=== PATIENT | female | born 1990 | race American Indian/Alaskan Native ===

== ENCOUNTER 2016-12-06 09:15 | Emergency (ER) | payer SELFPAY ==
[2016-12-06 09:22] VITALS: BP 111/62
[2016-12-06 10:16] LABS: Bacteria,Urine 1+ /HPF (Negative); Bilirubin,Urine NEG (Negative); Blood,Urine MOD (Negative); Ketones,Urine 80 mg/dL (Negative); Leukocyte Esterase,Urine LG (Negative); Mucus,Urine 3+ /HPF; Nitrite,Urine NEG (Negative); Urobilinogen,Urine < 2.0 mg/dL (<2.0)
[2016-12-06 10:20] LABS: WBC,Urine > 182.0 /HPF (0.0-6.0)
--- NOTE | 2016-12-06 10:39 | Emergency Department Report ---
ED Female HPI - General Chief complaint: Urogenital-Female Stated complaint: POSS UTI Time Seen by Provider: 12/06/16 10:15 Source: patient Mode of arrival: Ambulatory Limitations: No Limitations - History of Present Illness Initial comments: This is a 26-year-old female nontoxic, well nourished in appearance, no acute signs of distress presents to the ED complaining of urinary frequency and dysuria 4 days. Patient denies any vaginal discharge or vaginal bleeding. Patient states she may have a UTI or is . Patient denies similar symptoms. Denies any fever, chills, nausea, vomiting, back pain, numbness, hematuria, tingling, chest pain or shortness of breath. Patient denies any allergies or past medical history. MD Complaint: dysuria -: Gradual, days(s) (4) Radiation: non-radiating Severity: mild Severity scale (0 -10): 6 Quality: burning Consistency: constant Improves with: none Worsens with: urination Are you Now?: No Associated Symptoms: dysuria. denies: vaginal discharge, vaginal bleeding, abdominal pain, nausea/vomiting, fever/chills, headaches, loss of appetite, hematuria, rash, seizure, shortness of breath, syncope, weakness - Related Data Previous Rx's Medication Instructions Recorded Last Taken Type Sulfamethoxazole/Trimethoprim 1 each PO BID #14 tablet 12/06/16 Unknown Rx [Bactrim Ds Tablet] Allergies Allergy/AdvReac Type Severity Reaction Status Date / Time No Known Allergies Allergy Unverified 12/06/16 09:22 ED Review of Systems ROS: Stated complaint: POSS UTI Other details as noted in HPI Constitutional: denies: chills, fever Eyes: denies: eye pain, eye discharge, vision change ENT: denies: ear pain, throat pain Respiratory: denies: cough, shortness of breath, wheezing Cardiovascular: denies: chest pain, palpitations Endocrine: no symptoms reported Gastrointestinal: denies: abdominal pain, nausea, diarrhea Genitourinary: dysuria, frequency. denies: urgency, discharge Musculoskeletal: denies: back pain, joint swelling, arthralgia Skin: denies: rash, lesions Neurological: denies: headache, weakness, paresthesias Psychiatric: denies: anxiety, depression Hematological/Lymphatic: denies: easy bleeding, easy bruising ED Past Medical Hx - Past Medical History Previous Medical History?: No - Surgical History Past Surgical History?: No - Social History Smoking Status: Never Smoker Substance Use Type: None - Medications Home Medications: Home Medications Medication Instructions Recorded Confirmed Last Taken Type Sulfamethoxazole/Trimethoprim 1 each PO BID #14 tablet 12/06/16 Unknown Rx [Bactrim Ds Tablet] ED Physical Exam - General Limitations: No Limitations General appearance: alert, in no apparent distress - Head Head exam: Present: atraumatic, normocephalic - Eye Eye exam: Present: normal appearance, PERRL, EOMI. Absent: scleral icterus, conjunctival injection, nystagmus, periorbital swelling, periorbital tenderness Pupils: Present: normal accommodation - ENT ENT exam: Present: normal exam, normal orophraynx, mucous membranes moist, TM's normal bilaterally, normal external ear exam - Neck Neck exam: Present: normal inspection, full ROM. Absent: tenderness, meningismus, lymphadenopathy, thyromegaly - Respiratory Respiratory exam: Present: normal lung sounds bilaterally. Absent: respiratory distress, wheezes, rales, rhonchi, stridor, chest wall tenderness, accessory muscle use, decreased breath sounds, prolonged expiratory - Cardiovascular Cardiovascular Exam: Present: regular rate, normal rhythm, normal heart sounds. Absent: bradycardia, tachycardia, irregular rhythm, systolic murmur, diastolic murmur, rubs, gallop - GI/Abdominal GI/Abdominal exam: Present: soft, normal bowel sounds. Absent: distended, tenderness, guarding, rebound, rigid, diminished bowel sounds - Rectal Rectal exam: Present: deferred - Extremities Exam Extremities exam: Present: normal inspection, full ROM. Absent: tenderness, normal capillary refill, pedal edema, joint swelling, calf tenderness - Back Exam Back exam: Present: normal inspection, full ROM. Absent: tenderness, CVA tenderness (R), CVA tenderness (L), muscle spasm, paraspinal tenderness, vertebral tenderness, rash noted - Neurological Exam Neurological exam: Present: alert, oriented X3, CN II-XII intact, normal gait, reflexes normal - Psychiatric Psychiatric exam: Present: normal affect, normal mood - Skin Skin exam: Present: warm, dry, intact, normal color. Absent: rash ED Course Vital Signs 12/06/16 09:20 Temperature 98.6 F Pulse Rate 77 Respiratory 16 Rate Blood Pressure 111/62 O2 Sat by Pulse 100 Oximetry - Reevaluation(s) Reevaluation #1: 12/06/16 10:37 Patient is speaking in full sentences with no signs of distress noted. ED Medical Decision Making - Medical Decision Making 26-year-old female presents with UTI. UA has been obtained with elevated WBC, blood, ketones, and leukocytes. Negartive UA Preg. Patient received Bactrim at discharge. Patient notified her of the UA findings. Patient was instructed to follow-up with a primary care doctor in 3-5 days or if symptoms worsen and continue return to emergency room as soon as possible possible. At time time of discharge, the patient does not seem toxic or ill in appearance. No acute signs of distress noted. Patient agrees to discharge treatment plan of care. No further questions noted by the patient. Critical care attestation.: If time is entered above; I have spent that time in minutes in the direct care of this critically ill patient, excluding procedure time. ED Disposition Clinical Impression: UTI (urinary tract infection) Qualifiers: Urinary tract infection type: site unspecified Hematuria presence: without hematuria Qualified Code(s): N39.0 - Urinary tract infection, site not specified Disposition: DC-01 TO HOME OR SELFCARE Is pt being admited?: No Does the pt Need Aspirin: No Condition: Stable Instructions: Urinary Tract Infection in Women (ED), Sulfamethoxazole/ Trimethoprim (By mouth) Additional Instructions: Follow-up with a primary care doctor in 3-5 days or if symptoms worsen and continue return to emergency room as soon as possible possible. Prescriptions: Sulfamethoxazole/Trimethoprim [Bactrim Ds Tablet] 1 each PO BID #14 tablet Referrals: BRIAN SOLARES MD [Primary Care Provider] - 3-5 Days JONI CHONG MD [Staff Physician] - 3-5 Days [facility] [Outside] - 3-5 Days [facility] [Outside] - 3-5 Days Forms: Work/School Release Form(ED)
== END 2016-12-06 11:14 | disposition home or self-care (01) ==
LOC: MERGE 09:15 → ED 09:15
DX: N39.0 Urinary tract infection, site not specified (principal)
CPT/HCPCS: 81001; 81025; 99283

== ENCOUNTER 2017-02-07 09:07 | Emergency (ER) | payer MEDICAID, OTHER ==
[2017-02-07 09:55] VITALS: BP 103/69
[2017-02-07 11:10] LABS: Bacteria,Urine 2+ /HPF (Negative); Bilirubin,Urine NEG (Negative); Blood,Urine NEG (Negative); Ketones,Urine 80 mg/dL (Negative); Leukocyte Esterase,Urine LG (Negative); Mucus,Urine 3+ /HPF; Nitrite,Urine NEG (Negative); Urobilinogen,Urine < 2.0 mg/dL (<2.0)
[2017-02-07] MEDS ORDERED: ROCEPHIN IM ONE (11:13)
[2017-02-07] MEDS ORDERED: XYLOCAINE 1% MPF 5 mL INFILTRATI ONE (11:13)
[2017-02-07] MEDS ORDERED: ZITHROMAX PO ONE (11:39)
--- NOTE | 2017-02-07 11:44 | Emergency Department Report ---
ED Female HPI - General Chief complaint: Urogenital-Female Stated complaint: POSS STD Time Seen by Provider: 02/07/17 10:45 Source: patient Mode of arrival: Ambulatory Limitations: No Limitations - History of Present Illness Initial comments: PT c/o possible STD. PT reports unprotected sex 4 days ago. PT reports it was painful and her vagina feels irritated and she denies odor. PT states she also had some urinary frequency and dysuria. PT states her period tracker is saying that she should have started her period yesterday, but she has not started. PT denies f/c/n/v PT denies hx of STDs including PID or cervicitis PT is Complaint: vaginal discharge, possible STD -: Gradual, days(s) Location: suprapubic Radiation: non-radiating Severity: mild Quality: burning, other (irritation ) Consistency: constant Worsens with: urination, intercourse Are you Now?: No Associated Symptoms: vaginal discharge, dysuria. denies: vaginal bleeding, nausea/vomiting - Related Data Sexually active: Yes : 1 Para: 0 A: 1 Previous Rx's Medication Instructions Recorded Last Taken Type Cephalexin [Keflex] 500 mg PO Q12HR #14 cap 02/07/17 Unknown Rx Clotrimazole [Yxsr-Nnknhqxp-2] 1 applicator VG QHS 7 Days 02/07/17 Unknown Rx cream.appl Vit No.130/Iron/Folic 1 each PO DAILY #30 tablet 02/07/17 Unknown Rx [ Tablet] Allergies Allergy/AdvReac Type Severity Reaction Status Date / Time No Known Allergies Allergy Verified 02/07/17 09:48 ED Review of Systems ROS: Stated complaint: POSS STD Other details as noted in HPI Comment: All other systems reviewed and negative Constitutional: denies: chills, fever Gastrointestinal: denies: nausea, vomiting Genitourinary: as per HPI, dysuria, frequency, discharge, abnormal menses Musculoskeletal: denies: back pain Skin: denies: rash ED Past Medical Hx - Past Medical History Previous Medical History?: No - Surgical History Past Surgical History?: No - Social History Smoking Status: Never Smoker Substance Use Type: None - Medications Home Medications: Home Medications Medication Instructions Recorded Confirmed Last Taken Type Cephalexin [Keflex] 500 mg PO Q12HR #14 cap 02/07/17 Unknown Rx Clotrimazole [Tvzb-Fngnjmex-7] 1 applicator VG QHS 7 Days 02/07/17 Unknown Rx cream.appl Vit No.130/Iron/Folic 1 each PO DAILY #30 tablet 02/07/17 Unknown Rx [ Tablet] ED Physical Exam - General Limitations: No Limitations General appearance: alert, in no apparent distress - Head Head exam: Present: atraumatic, normocephalic, normal inspection - Eye Eye exam: Present: normal appearance, PERRL, EOMI. Absent: scleral icterus, conjunctival injection - ENT ENT exam: Present: normal exam, mucous membranes moist, normal external ear exam - Neck Neck exam: Present: normal inspection, full ROM - Respiratory Respiratory exam: Present: normal lung sounds bilaterally. Absent: respiratory distress, chest wall tenderness - Cardiovascular Cardiovascular Exam: Present: regular rate, normal rhythm, normal heart sounds - GI/Abdominal GI/Abdominal exam: Present: soft, normal bowel sounds. Absent: tenderness - External exam: Present: normal external exam. Absent: lesions, bleeding Speculum exam: Present: foreign body (white tissue found in vagina. Possible baby wipe or facial tissue. PT denies fb insertion ) Bi-manual exam: Present: normal bi-manual exam. Absent: cervical motion tendernes, uterine tenderness - Extremities Exam Extremities exam: Present: normal inspection, full ROM. Absent: pedal edema - Back Exam Back exam: Present: normal inspection, full ROM. Absent: tenderness, CVA tenderness (R), CVA tenderness (L) - Neurological Exam Neurological exam: Present: alert, oriented X3, normal gait - Psychiatric Psychiatric exam: Present: normal affect, normal mood - Skin Skin exam: Present: warm, dry, intact, normal color. Absent: rash ED Course Vital Signs 02/07/17 02/07/17 09:48 15:27 Temperature 98.4 F 98.4 F Pulse Rate 83 83 Respiratory 16 Rate Blood Pressure 103/69 O2 Sat by Pulse 99 99 Oximetry - Reevaluation(s) Reevaluation #1: 02/07/17 11:44 PT aware of available lab results. PT aware of plan of care. Reevaluation #2: 02/07/17 14:34 PT aware of lab and US results. PT aware she will need to follow up with OB/ [facility]ATION CONSULTANT. PT aware she should return to ED in 2-3 days to have bhcg level rechecked. PT has no questions at this time. 02/07/17 14:40 PT had one episode of n/v after Zithromax/ Rocephin - treated with phenergan, improved, tolerating po - Procedure Description Procedures done: During pelvic exam, pt found to have vaginal FB. Metal ring forcepts used to remove white tissue. small debris remain. PT tolerated the procedure well. - Pulse Oximetry Interpretation Digit-Finger Initial Pulse Oximetry Readin Actions Taken: none ED Medical Decision Making - Lab Data Result diagrams: 02/07/17 11:44 02/07/17 11:44 Laboratory Results - last 72 hr 02/07/17 02/07/17 02/07/17 10:14 11:44 11:44 WBC 10.8 RBC 4.61 Hgb 11.9 Hct 36.4 MCV 79 MCH 26 L MCHC 33 RDW 20.4 H Plt Count 227 Lymph % (Auto) 18.1 [place] % (Auto) 4.7 Eos % (Auto) 0.1 Baso % (Auto) 1.1 Lymph # 2.0 [place] # 0.5 Eos # 0.0 Baso # 0.1 Seg Neutrophils % 76.0 H Seg Neutrophils # 8.2 H Sodium 134 L Potassium 3.9 Chloride 98.0 Carbon Dioxide 20 L Anion Gap 20 BUN 12 Creatinine 0.4 L Estimated GFR > 60 BUN/Creatinine Ratio 30 Glucose 77 Calcium 9.6 Total Bilirubin 0.70 AST 15 ALT 9 Alkaline Phosphatase 53 Total Protein 7.7 Albumin 4.7 Albumin/Globulin Ratio 1.6 HCG, Quant Urine Color Yellow Urine Turbidity Clear Urine pH 5.0 Ur Specific [place] 1.024 Urine Protein 30 mg/dl Urine Glucose (UA) Neg Urine Ketones 80 Urine Blood Neg Urine Nitrite Neg Urine Bilirubin Neg Urine Urobilinogen < 2.0 Ur Leukocyte Esterase Lg Urine WBC (Auto) 77.0 H Urine RBC (Auto) 20.0 U Epithel Cells (Auto) 12.0 Urine Bacteria (Auto) 2+ Urine Mucus 3+ Urine HCG, Qual Positive A Blood Type 02/07/17 02/07/17 11:44 11:44 WBC RBC Hgb Hct MCV MCH MCHC RDW Plt Count Lymph % (Auto) [place] % (Auto) Eos % (Auto) Baso % (Auto) Lymph # [place] # Eos # Baso # Seg Neutrophils % Seg Neutrophils # Sodium Potassium Chloride Carbon Dioxide Anion Gap BUN Creatinine Estimated GFR BUN/Creatinine Ratio Glucose Calcium Total Bilirubin AST ALT Alkaline Phosphatase Total Protein Albumin Albumin/Globulin Ratio HCG, Quant 37.85 H Urine Color Urine Turbidity Urine pH Ur Specific [place] Urine Protein Urine Glucose (UA) Urine Ketones Urine Blood Urine Nitrite Urine Bilirubin Urine Urobilinogen Ur Leukocyte Esterase Urine WBC (Auto) Urine RBC (Auto) U Epithel Cells (Auto) Urine Bacteria (Auto) Urine Mucus Urine HCG, Qual Blood Type B POSITIVE Urine culture pending. - Radiology Data Radiology results: report reviewed US OB- [facility] CONS[facility] - no intrauterine seen correlates with bhcg level - Differential Diagnosis std, uti, vaginitis Critical Care Time: No Critical care attestation.: If time is entered above; I have spent that time in minutes in the direct care of this critically ill patient, excluding procedure time. ED Disposition Clinical Impression: Vulvovaginal candidiasis Qualifiers: Weeks of gestation: less than 8 weeks Qualified Code(s): Z3A.01 - Less than 8 weeks gestation of Vaginal foreign body Qualifiers: Encounter type: initial encounter Qualified Code(s): T19.2XXA - Foreign body in vulva and vagina, initial encounter UTI (urinary tract infection) Qualifiers: Urinary tract infection type: acute cystitis Hematuria presence: with hematuria Qualified Code(s): N30.01 - Acute cystitis with hematuria Disposition: TO HOME OR SELFCARE Is pt being admited?: No Does the pt Need Aspirin: No Condition: Stable Instructions: Morning Sickness (ED), Urinary Tract Infection in Women (ED), Vulvovaginal Candidiasis (ED), Vaginitis (ED), Vaginal Foreign Body (ED) Additional Instructions: Pelvic rest x 7 days - no sex, tampons or douching do not put anything in your vagina Finish your antibiotics Follow up with W[facility] TREATMENT SPECIALIST in 3-5 days Return to the ED in 2-3 days to have your betaHCG level rechecked - it should double Return to the ED if you have vaginal bleeding or pelvic pain or fevers or back pain Ask your doctor or your pharmacist before taking any otc medication Prescriptions: Clotrimazole [Itut-Atutzbmi-2] 1 applicator VG QHS 7 Days cream.appl Cephalexin [Keflex] 500 mg PO Q12HR #14 cap Vit No.130/Iron/Folic [ Tablet] 1 each PO DAILY #30 tablet Referrals: PRIMARY CARE, [Primary Care Provider] - 3-5 Days THERESA CARIAS MD [Staff Physician] - 3-5 Days Forms: Work/School Release Form(ED) Time of Disposition: 14:37
[2017-02-07 12:00] LABS: Basophils % (Auto) 1.1 % (0.0-1.8); Eosinophils % (Auto) 0.1 % (0.0-4.3); Hematocrit 36.4 % (30.3-42.9); Hemoglobin 11.9 gm/dl (10.1-14.3); Mean Corpuscular HGB Conc 33 % (30-34); Mean Corpuscular Volume 79 fl (79-97); Platelet Count 227 K/mm3 (140-440); Red Blood Count 4.61 M/mm3 (3.65-5.03); White Blood Count 10.8 K/mm3 (4.5-11.0)
[2017-02-07 12:05] LABS: Mean Corpuscular Hemoglobin 26 pg (28-32); Red Cell Distribution Width 20.4 % (13.2-15.2)
[2017-02-07 12:21] LABS: Alanine Aminotransferase 9 units/L (7-56); Albumin 4.7 g/dL (3.9-5); Albumin/Globulin Ratio 1.6 %; Alkaline Phosphatase 53 units/L (35-129); Anion Gap 20 mmol/L; BUN/Creatinine Ratio 30; Blood Urea Nitrogen 12 mg/dL (7-17); Calcium 9.6 mg/dL (8.4-10.2); Carbon Dioxide 20 mmol/L (22-30); Glucose 77 mg/dL (65-100); Potassium 3.9 mmol/L (3.6-5.0); Sodium 134 mmol/L (137-145); Total Protein 7.7 g/dL (6.3-8.2)
[2017-02-07] MEDS ORDERED: PHENERGAN PR ONE (13:47)
--- NOTE | 2017-02-07 14:21 | Ultrasound Report ---
FINAL REPORT EXAM: US OB < = 14 WEEKS FETUS HISTORY: pelvic pain in early TECHNIQUE: Grayscale and color doppler ultrasound imaging of the pelvis was performed transabdominally and transvaginally. PRIORS: None. FINDINGS: Uterus: The uterus is homogeneous in echogenicity without focal mass. The uterus measures 10.5 x 3.6 x 6.2 centimeters. The endometrium measures 10.5 millimeters in thickness. No intrauterine gestational sac was seen. No ectopic was seen. Ovaries: Complex cyst is seen within the right ovary measuring 1.3 centimeters. No left ovarian lesions. Normal flow is seen to the ovaries. The right ovary measures 3.7 x 2.3 x 3.1 centimeters. The left ovary measures 2.8 x 1.2 x 2.5 centimeters. Free fluid: There is a small amount of free fluid in the pelvis. IMPRESSION: 1. Complex right ovarian cyst may represent a hemorrhagic cyst or corpus luteum. Recommend followup pelvic ultrasound in 6-10 weeks. 2. No intrauterine or ectopic identified. Small amount of free fluid in the pelvis.
== END 2017-02-07 15:29 | disposition home or self-care (01) ==
LOC: ED 09:07
DX: O98.811 Other maternal infectious and parasitic diseases complicating pregnancy, first trimester (principal); B37.3 Candidiasis of vulva and vagina; T19.2XXA Foreign body in vulva and vagina, initial encounter; O23.11 Infections of bladder in pregnancy, first trimester; Z3A.01 Less than 8 weeks gestation of pregnancy; W45.8XXA Other foreign body or object entering through skin, initial encounter; Y93.89 Activity, other specified; Y99.8 Other external cause status; Y92.89 Other specified places as the place of occurrence of the external cause
CPT/HCPCS: 36415; 76801; 76817; 80053; 81001; 81025; 84702; 85025; 86900; 86901; 87086; 87210; 87591; 96372; 99284; J0696

== ENCOUNTER 2017-03-03 15:42 | Inpatient (IN) | payer MEDICAID, OTHER ==
[2017-03-03] MEDS ORDERED: TRANSDERM-SCOP TD SCH (18:30)
[2017-03-03] MEDS: D5LR 1,000 ML IV SCH ×3 (18:59→23:28)
[2017-03-03] MEDS: REGLAN IV SCH ×2 (18:59→23:29)
[2017-03-03] MEDS: PHENERGAN PR SCH ×2 (19:00→23:24)
[2017-03-03 19:28] LABS: Basophils % (Auto) 0.2 % (0.0-1.8); Eosinophils # (Auto) 0.1 K/mm3 (0.0-0.4); Eosinophils % (Auto) 0.7 % (0.0-4.3); Hemoglobin 11.7 gm/dl (10.1-14.3); Lymphocytes # (Auto) 1.1 K/mm3 (1.2-5.4); Lymphocytes % (Auto) 11.9 % (13.4-35.0); Mean Corpuscular HGB Conc 32 % (30-34); Mean Corpuscular Volume 81 fl (79-97); Monocytes # (Auto) 0.4 K/mm3 (0.0-0.8); Monocytes % (Auto) 4.2 % (0.0-7.3); Platelet Count 281 K/mm3 (140-440); Red Blood Count 4.55 M/mm3 (3.65-5.03); Red Cell Distribution Width 19.2 % (13.2-15.2)
[2017-03-03 19:32] LABS: Mean Corpuscular Hemoglobin 26 pg (28-32)
[2017-03-03 19:44] LABS: Lipase 22 units/L (13-60)
[2017-03-03 20:07] LABS: Hepatitis A Antibody IgM Non-Reactive (NonReactive); Hepatitis B Core IgM Non-Reactive (NonReactive); Hepatitis B Surface Antigen Non-Reactive (Negative); Hepatitis C Virus Antibody Non-Reactive (NonReactive)
[2017-03-03 20:10] LABS: BUN/Creatinine Ratio 33; Blood Urea Nitrogen 10 mg/dL (7-17); Calcium 10.4 mg/dL (8.4-10.2); Hemolysis Index 2
--- NOTE | 2017-03-03 20:16 | History and Physical Report ---
History of Present Illness Date of examination: 03/03/17 Date of admission: 03/03/17 16:54 History of present illness: 26 yo LMP 01/10/17 at 7 week gestation by LMP seen for routine NOB visit in office today with c/o severe hyperemesis since January. Inability to tolerate any diet excepts sips of sprite at times. Vomiting up to 6 times a day with 10lb weight loss. ER visit in January received IV hydration and rectal promethezine. Voiced outpatient Rx for antiemetic not given. Past History Past Medical History: no pertinent history Past Surgical History: no surgical history Social history: no significant social history Medications and Allergies Allergies Allergy/AdvReac Type Severity Reaction Status Date / Time No Known Allergies Allergy Verified 02/07/17 09:48 Home Medications Medication Instructions Recorded Confirmed Last Taken Type Cephalexin [Keflex] 500 mg PO Q12HR #14 cap 02/07/17 Unknown Rx Clotrimazole [Woat-Jngsxsas-9] 1 applicator VG QHS 7 Days 02/07/17 Unknown Rx cream.appl Vit No.130/Iron/Folic 1 each PO DAILY #30 tablet 02/07/17 Unknown Rx [ Tablet] Active Meds: Active Medications Dextrose/Lactated Ringer's (D5lr) 1,000 mls @ 500 mls/hr IV DIRECT JAVIER Stop: 03/04/17 18:59 Last Admin: 03/03/17 18:59 Dose: 500 mls/hr Dextrose/Lactated Ringer's (D5lr) 1,000 mls @ 150 mls/hr IV DIRECT JAVIER Metoclopramide HCl (Reglan) 10 mg IV Q6H JAVIER Last Admin: 03/03/17 18:59 Dose: 10 mg Ondansetron HCl (Zofran) 4 mg IV Q6H PRN PRN Reason: N/V unrelieved by Reglan Promethazine HCl (Phenergan) 25 mg IN Q6HR JAVIER Scopolamine (Transderm-Scop) 1 each TD Q3D JAVIER Review of Systems Constitutional: weight loss, anorexia, fatigue, malaise, poor appetite Eyes: deferred Gastrointestinal: nausea, vomiting, loss of appetite Genitourinary: normal appearance, no vaginal bleeding, no vaginal discharge, no pelvic pain, no genital sores - Physical Exam Breasts: Positive: normal, tender Lungs: Positive: Normal air movement Abdomen: Positive: normal appearance Genitourinary (Female): Positive: normal external genitalia, normal perenium Uterus: Positive: normal size, normal contour Results Result Diagrams: 03/03/17 19:12 03/03/17 19:12 Abnormal lab results 03/03/17 03/03/17 Range/Units 19:12 19:12 MCH 26 L (28-32) pg RDW 19.2 H (13.2-15.2) % Lymph % (Auto) 11.9 L (13.4-35.0) % Lymph # 1.1 L (1.2-5.4) K/mm3 Seg Neutrophils % 83.0 H (40.0-70.0) % Creatinine 0.3 L (0.7-1.2) mg/dL Glucose 148 H (65-100) mg/dL Calcium 10.4 H (8.4-10.2) mg/dL All other labs normal. Ultrasound: other (u/s 02/07/2017 thickened endometrium, no IUP documented. [facility] 37 on same) Assessment and Plan A: IUP at 7 weeks by LMP Hyperemesis P: Labs' U/S confirm IUP Hydration Antiemetics
[2017-03-03 20:24] LABS: HCG,Quantitative 100152 mIU/mL (0-4)
[2017-03-03 23:46] LABS: Bacteria,Urine 1+ /HPF (Negative); Bilirubin,Urine NEG (Negative); Blood,Urine NEG (Negative); Color,Urine Yellow (Yellow); Mucus,Urine 3+ /HPF; Nitrite,Urine NEG (Negative); Protein,Urine <15 mg/dL mg/dL (Negative); Urobilinogen,Urine < 2.0 mg/dL (<2.0)
--- NOTE | 2017-03-04 03:29 | Ultrasound Report ---
FINAL REPORT EXAM: US OB < = 14 WEEKS FETUS HISTORY: viability TECHNIQUE: Transabdominal imaging was obtained of the pelvis along with Doppler interrogation of the uterus and adnexa. FINDINGS: The uterus is anteverted measuring 10.0 cm x 6.1 cm x 7.6 cm. Within the uterus is a gestational sac containing a yolk sac and pole. The crown-rump length of the pole is 7.2 millimeters compatible with 6 week 4 day IUP. The heart is 124 BPM. Adjacent to the gestational sac is a small subchorionic hemorrhage measuring 15 millimeters x 6 millimeters x 14 millimeters. The cervix is closed. Free fluid is not seen. The right ovary is normal size contour and echotexture measuring 2.7 cm x 1.7 cm x 2.4 cm. Within the right ovary is a 8 millimeter functional cyst. The left ovary is normal size contour and echotexture measuring 2 cm by 1.8 cm x 1.8 cm. Additional scanning of the bladder reveals dependent debris. IMPRESSION: Single viable IUP, 6 weeks 4 days. heart is 124 BPM. 8 millimeter functional cyst right ovary representing a corpus luteum cyst. Small subchorionic hemorrhage measuring 15 millimeters x 6 millimeters x 14 millimeters
[2017-03-04] MEDS: PHENERGAN PR SCH (05:12)
[2017-03-04] MEDS: D5LR 1,000 ML IV SCH ×3 (05:12→19:45)
[2017-03-04] MEDS: REGLAN IV SCH (05:12)
--- NOTE | 2017-03-04 08:27 | Progress Note ---
Assessment and Plan A: IUP at 7wks, hyperemesis P: Continue current management. Anticipate discharge tomorrow. Subjective - Subjective Date of service: 03/04/17 Principal diagnosis: IUP at 7 wks, hyperemesis Interval history: No emesis overnight. Pt feeling betterr Patient reports: no new complaints Objective - Vital Signs Vital Signs: Vital Signs - 12hr 03/03/17 03/04/17 23:50 04:15 Temperature 97.5 F L 98.4 F Pulse Rate 83 78 Respiratory 18 18 Rate Blood Pressure 95/47 93/50 [Right] O2 Sat by Pulse 100 99 Oximetry - Exam Breasts: deferred Cardiovascular: Regular rate Lungs: Clear to auscultation Abdomen: Present: soft. Absent: tenderness Extremities: normal - Labs Labs: Abnormal Labs 03/03/17 03/03/17 03/03/17 19:12 19:12 19:12 MCH 26 L RDW 19.2 H Lymph % (Auto) 11.9 L Lymph # 1.1 L Seg Neutrophils % 83.0 H Creatinine Glucose Calcium TSH 0.168 L HCG, Quant 406707 H Ur Specific [place] Urine WBC (Auto) 03/03/17 03/03/17 19:12 21:50 MCH RDW Lymph % (Auto) Lymph # Seg Neutrophils % Creatinine 0.3 L Glucose 148 H Calcium 10.4 H TSH HCG, Quant Ur Specific [place] 1.034 H Urine WBC (Auto) 95.0 H Laboratory Results - last 24 hr 03/03/17 03/03/17 03/03/17 19:12 19:12 19:12 WBC 9.2 RBC 4.55 Hgb 11.7 Hct 37.0 MCV 81 MCH 26 L MCHC 32 RDW 19.2 H Plt Count 281 Lymph % (Auto) 11.9 L [place] % (Auto) 4.2 Eos % (Auto) 0.7 Baso % (Auto) 0.2 Lymph # 1.1 L [place] # 0.4 Eos # 0.1 Baso # 0.0 Seg Neutrophils % 83.0 H Seg Neutrophils # 7.6 Sodium Potassium Chloride Carbon Dioxide Anion Gap BUN Creatinine Estimated GFR BUN/Creatinine Ratio Glucose Calcium Amylase 78 Lipase 22 TSH 0.168 L HCG, Quant Urine Color Urine Turbidity Urine pH Ur Specific [place] Urine Protein Urine Glucose (UA) Urine Ketones Urine Blood Urine Nitrite Urine Bilirubin Urine Urobilinogen Ur Leukocyte Esterase Urine WBC (Auto) Urine RBC (Auto) U Epithel Cells (Auto) Urine Bacteria (Auto) Urine Mucus Hepatitis A IgM Ab Hep Bs Antigen Hep B Core IgM Ab Hepatitis C Antibody 03/03/17 03/03/17 03/03/17 19:12 19:12 21:50 WBC RBC Hgb Hct MCV MCH MCHC RDW Plt Count Lymph % (Auto) [place] % (Auto) Eos % (Auto) Baso % (Auto) Lymph # [place] # Eos # Baso # Seg Neutrophils % Seg Neutrophils # Sodium 138 Potassium 3.6 Chloride 99.1 Carbon Dioxide 22 Anion Gap 21 BUN 10 Creatinine 0.3 L Estimated GFR > 60 BUN/Creatinine Ratio 33 Glucose 148 H Calcium 10.4 H Amylase Lipase TSH HCG, Quant [id number] H Urine Color Yellow Urine Turbidity Clear Urine pH 5.0 Ur Specific [place] 1.034 H Urine Protein <15 mg/dl Urine Glucose (UA) Neg Urine Ketones Neg Urine Blood Neg Urine Nitrite Neg Urine Bilirubin Neg Urine Urobilinogen < 2.0 Ur Leukocyte Esterase Neg Urine WBC (Auto) 95.0 H Urine RBC (Auto) 10.0 U Epithel Cells (Auto) 8.0 Urine Bacteria (Auto) 1+ Urine Mucus 3+ Hepatitis A IgM Ab Non-reactive Hep Bs Antigen Non-reactive Hep B Core IgM Ab Non-reactive Hepatitis C Antibody Non-reactive
[2017-03-04] MEDS: REGLAN PO PRN ×2 (13:17→19:25)
[2017-03-04] MEDS: ZOFRAN IV PRN (22:52)
[2017-03-05] MEDS: D5LR 1,000 ML IV SCH ×2 (02:37→09:20)
[2017-03-05] MEDS: REGLAN PO PRN (05:15)
[2017-03-05] MEDS: ZOFRAN IV PRN (08:35)
--- NOTE | 2017-03-05 08:39 | Progress Note ---
Assessment and Plan Patient still complaining of nausea but only vomited once yesterday. Patient feels ready to go home on today. Subjective - Subjective Date of service: 03/05/17 Principal diagnosis: IUP at 7 wks, hyperemesis Patient reports: no new complaints Objective - Vital Signs Vital Signs: Vital Signs - 12hr 03/04/17 03/05/17 03/05/17 20:45 00:35 05:20 Temperature 98.4 F 99.2 F 98.6 F Pulse Rate 74 73 68 Respiratory 16 20 18 Rate Blood Pressure 98/53 97/69 98/58 [Right] - Exam Lungs: Clear to auscultation, Normal air movement Abdomen: Present: normal appearance, soft, normal bowel sounds Uterus: Present: normal, firm FHR: auscultation normal - Labs Labs: Abnormal Labs 03/03/17 03/03/17 03/03/17 19:12 19:12 19:12 MCH 26 L RDW 19.2 H Lymph % (Auto) 11.9 L Lymph # 1.1 L Seg Neutrophils % 83.0 H Creatinine Glucose Calcium TSH 0.168 L HCG, Quant 218662 H Ur Specific [place] Urine WBC (Auto) 03/03/17 03/03/17 19:12 21:50 MCH RDW Lymph % (Auto) Lymph # Seg Neutrophils % Creatinine 0.3 L Glucose 148 H Calcium 10.4 H TSH HCG, Quant Ur Specific [place] 1.034 H Urine WBC (Auto) 95.0 H
--- NOTE | 2017-03-05 09:00 | Discharge Summary ---
Providers - Providers Date of Admission: 03/03/17 16:54 Date of discharge: 03/05/17 Attending physician: MAGY VASQUEZ Primary care physician: GAGE BENNETT Hospitalization Reason for admission: other (hyperemesis) Other procedures: none complications: none Discharge diagnosis: other (hyperemesis) Hospital course: Much improved Condition at discharge: Good Disposition: DC-01 TO HOME OR SELFCARE Plan - Discharge Medications Prescriptions: Metoclopramide [Reglan] 10 mg PO Q6H #60 tab Ondansetron [Zofran ODT TAB] 8 mg PO Q8HR #40 tab.rapdis - Provider Discharge Summary Activity: routine, no sex for 6 weeks, no heavy lifting 4 weeks, no strenuous exercise Diet: routine Instructions: routine Additional instructions: [] Smoking cessation referral if applicable(refer to patient education folder for contact #) [] Refer to [facility]'s [facility] Booklet Call your doctor immediately for: * Fever > 100.5 * Heavy vaginal bleeding ( >1 pad per hour) * Severe persistent headache * Shortness of breath * Reddened, hot, painful area to leg or breast * Drainage or odor from incision. * Keep incision clean and dry at all times and follow doctor's instructions regarding bathing/showering - Follow up plan Follow up: MAGY VASQUEZ MD [Staff Physician] - 7 Days
[2017-03-05 09:49] VITALS: BP 88/57
== END 2017-03-05 12:55 | disposition home or self-care (01) | DRG 781 ==
LOC: 3A 15:42 → UNDOADMIN 15:42 → OB 16:54
PROVIDERS: ADMIT Obstetrics & Gynecology; ATTEND Obstetrics & Gynecology
DX: O21.0 Mild hyperemesis gravidarum (principal); Z68.22 Body mass index [BMI] 22.0-22.9, adult; Z3A.01 Less than 8 weeks gestation of pregnancy
CPT/HCPCS: 36415; 76801; 80048; 80074; 81001; 82150; 83690; 84443; 84702; 85025; 87086; J2405; J2765; J7121

== ENCOUNTER 2018-08-19 16:59 | Emergency (ER) | payer MEDICAID ==
[2018-08-19] MEDS ORDERED: TYLENOL PO ONE (17:11)
--- NOTE | 2018-08-19 17:25 | Emergency Department Report ---
ED ENT HPI - General Chief complaint: Sore Throat Stated complaint: NAUSEA/BODY SORE Time Seen by Provider: 08/19/18 17:20 Source: patient Mode of arrival: Ambulatory Limitations: No Limitations - History of Present Illness MD complaint: sore throat, difficulty swallowing -: Gradual, Sudden Location: throat Severity: mild, moderate Quality: dull Consistency: constant Improves with: none Worsens with: none Associated Symptoms: sore throat. denies: gum swelling, tinnitus, discharge from ear, rhinorrhea - Related Data Previous Rx's Medication Instructions Recorded Last Taken Type Ondansetron [Zofran Odt] 4 mg PO Q4HR PRN #12 tab.rapdis 02/12/18 Unknown Rx Vit No.130/Iron/Folic 1 each PO DAILY #30 tablet 02/12/18 Unknown Rx [ Tablet] Fluconazole [Diflucan] 200 mg PO ONCE #1 tablet 05/18/18 Unknown Rx metroNIDAZOLE [Flagyl] 500 mg PO Q12HR #14 tab 05/18/18 Unknown Rx Allergies Allergy/AdvReac Type Severity Reaction Status Date / Time No Known Allergies Allergy Verified 08/19/18 17:00 ED Dental HPI - General Chief complaint: Sore Throat Stated complaint: NAUSEA/BODY SORE Time Seen by Provider: 08/19/18 17:20 Source: patient Mode of arrival: Ambulatory Limitations: No Limitations - Related Data Previous Rx's Medication Instructions Recorded Last Taken Type Ondansetron [Zofran Odt] 4 mg PO Q4HR PRN #12 tab.rapdis 02/12/18 Unknown Rx Vit No.130/Iron/Folic 1 each PO DAILY #30 tablet 02/12/18 Unknown Rx [ Tablet] Fluconazole [Diflucan] 200 mg PO ONCE #1 tablet 05/18/18 Unknown Rx metroNIDAZOLE [Flagyl] 500 mg PO Q12HR #14 tab 05/18/18 Unknown Rx Allergies Allergy/AdvReac Type Severity Reaction Status Date / Time No Known Allergies Allergy Verified 08/19/18 17:00 ED Review of Systems ROS: Stated complaint: NAUSEA/BODY SORE Other details as noted in HPI Constitutional: denies: chills, fever Eyes: denies: eye pain, eye discharge, vision change ENT: throat pain. denies: ear pain Respiratory: denies: cough, shortness of breath, wheezing Cardiovascular: denies: chest pain, palpitations Endocrine: no symptoms reported Gastrointestinal: denies: abdominal pain, nausea, diarrhea Genitourinary: denies: urgency, dysuria, discharge Musculoskeletal: denies: back pain, joint swelling, arthralgia Skin: denies: rash, lesions Neurological: denies: headache, weakness, paresthesias Psychiatric: denies: anxiety, depression Hematological/Lymphatic: denies: easy bleeding, easy bruising ED Past Medical Hx - Past Medical History Previous Medical History?: No Hx Hypertension: Yes (Father) - Surgical History Past Surgical History?: No - Social History Smoking Status: Never Smoker Substance Use Type: Alcohol - Medications Home Medications: Home Medications Medication Instructions Recorded Confirmed Last Taken Type Ondansetron [Zofran Odt] 4 mg PO Q4HR PRN #12 tab.rapdis 02/12/18 Unknown Rx Vit No.130/Iron/Folic 1 each PO DAILY #30 tablet 02/12/18 Unknown Rx [ Tablet] Fluconazole [Diflucan] 200 mg PO ONCE #1 tablet 05/18/18 Unknown Rx metroNIDAZOLE [Flagyl] 500 mg PO Q12HR #14 tab 05/18/18 Unknown Rx ED Physical Exam - General Limitations: No Limitations General appearance: alert, in no apparent distress - Head Head exam: Present: atraumatic, normocephalic - Eye Eye exam: Present: normal appearance, PERRL, EOMI - ENT ENT exam: Present: mucous membranes moist. Absent: normal orophraynx (PHARYNX RED WITH MILD SWELLING TO RIGHT. NO EXUDATE. NO BLEEDING .NO FB ) - Neck Neck exam: Present: normal inspection, full ROM. Absent: tenderness, meningismus, lymphadenopathy - Respiratory Respiratory exam: Present: normal lung sounds bilaterally. Absent: respiratory distress, wheezes, rales, stridor, chest wall tenderness, accessory muscle use, decreased breath sounds - Cardiovascular Cardiovascular Exam: Present: regular rate, normal rhythm. Absent: systolic murmur, diastolic murmur, rubs, gallop - GI/Abdominal GI/Abdominal exam: Present: soft, normal bowel sounds - Extremities Exam Extremities exam: Present: normal inspection - Back Exam Back exam: Present: normal inspection - Neurological Exam Neurological exam: Present: alert, oriented X3 - Psychiatric Psychiatric exam: Present: normal affect, normal mood - Skin Skin exam: Present: warm, dry, intact, normal color. Absent: rash ED Course Vital Signs 08/19/18 17:06 Temperature 103 F H Pulse Rate 110 H Respiratory 20 Rate Blood Pressure 112/73 O2 Sat by Pulse 100 Oximetry ED Medical Decision Making - Medical Decision Making 27 Y/O FEMALE PRESENTS TO SORE THROAT AND FEVER. WORSE WITH SWALLOWING FOR THE LAST 2 DAYS .NO CHEST PAIN OR SOB. +CHILLS AND ACHES. PLAN ANTIBIOTICS AND F/U WITH PCP. Critical care attestation.: If time is entered above; I have spent that time in minutes in the direct care of this critically ill patient, excluding procedure time. ED Disposition Clinical Impression: Fever, Pharyngitis Disposition: DC-01 TO HOME OR SELFCARE Is pt being admited?: No Does the pt Need Aspirin: No Condition: Stable Instructions: Pharyngitis (ED), Fever in Adults (ED) Referrals: [facility] [Provider Group] - 3-5 Days
[2018-08-19 18:02] VITALS: BP 107/65
== END 2018-08-19 18:00 | disposition home or self-care (01) ==
LOC: ED 16:59
DX: J02.9 Acute pharyngitis, unspecified (principal); I10 Essential (primary) hypertension

== ENCOUNTER 2018-08-30 10:19 | Emergency (ER) | payer MEDICAID ==
[2018-08-30 10:41] VITALS: BP 118/69
[2018-08-30] MEDS ORDERED: BICILLIN L-A IM ONE (11:29)
[2018-08-30] MEDS ORDERED: DECADRON IM ONE (11:29)
--- NOTE | 2018-08-30 12:16 | Emergency Department Report ---
ED General Adult HPI - General Chief complaint: Abdominal Pain Stated complaint: VOMITING/SORE THROAT/HEADACHE/FEVER Time Seen by Provider: 08/30/18 11:23 Source: patient Mode of arrival: Ambulatory Limitations: No Limitations - History of Present Illness Initial comments: Patient is a 27-year-old female who is presenting with sore throat. Patient has some mild nausea and vomiting as well. Patient has some crampy generalized abdominal discomfort. Patient was here on 08/19/2018 for similar symptoms. Patient was diagnosed with acute pharyngitis and started on area patient states she started taking amoxicillin started feeling better however she stopped taking the medications thinking that she didn't have to take the full course. Patient states over the last 3 days symptoms have returned and have worsened Severity scale (0 -10): 7 - Related Data Previous Rx's Medication Instructions Recorded Last Taken Type Ondansetron [Zofran Odt] 4 mg PO Q4HR PRN #12 tab.rapdis 02/12/18 Unknown Rx Vit No.130/Iron/Folic 1 each PO DAILY #30 tablet 02/12/18 Unknown Rx [ Tablet] Fluconazole [Diflucan] 200 mg PO ONCE #1 tablet 05/18/18 Unknown Rx metroNIDAZOLE [Flagyl] 500 mg PO Q12HR #14 tab 05/18/18 Unknown Rx Amoxicillin [Amoxicillin TAB] 875 mg PO BID #20 tablet 08/19/18 Unknown Rx Chlorhexidine Mouthwash [Peridex] 15 ml MM BID #473 bottle 08/19/18 Unknown Rx Lidocaine Viscous 2% 5 ml MM Q3H PRN #120 udc 08/19/18 Unknown Rx dexAMETHasone [Decadron] 4 mg PO Q12H #5 tablet 08/19/18 Unknown Rx HYDROcodone/ACETAMINOPHEN 15 ml PO Q6H PRN #100 solution 08/30/18 Unknown Rx [Hydrocodon-Acetamin 7.5-325/15] Ondansetron [Zofran Odt] 4 mg PO Q8HR #6 tab.rapdis 08/30/18 Unknown Rx Allergies Allergy/AdvReac Type Severity Reaction Status Date / Time No Known Allergies Allergy Verified 08/30/18 10:38 ED Review of Systems ROS: Stated complaint: VOMITING/SORE THROAT/HEADACHE/FEVER Other details as noted in HPI Comment: All other systems reviewed and negative ED Past Medical Hx - Past Medical History Previous Medical History?: No Hx Hypertension: No - Surgical History Past Surgical History?: No - Social History Smoking Status: Never Smoker Substance Use Type: Alcohol - Medications Home Medications: Home Medications Medication Instructions Recorded Confirmed Last Taken Type Ondansetron [Zofran Odt] 4 mg PO Q4HR PRN #12 tab.rapdis 02/12/18 Unknown Rx Vit No.130/Iron/Folic 1 each PO DAILY #30 tablet 02/12/18 Unknown Rx [ Tablet] Fluconazole [Diflucan] 200 mg PO ONCE #1 tablet 05/18/18 Unknown Rx metroNIDAZOLE [Flagyl] 500 mg PO Q12HR #14 tab 05/18/18 Unknown Rx Amoxicillin [Amoxicillin TAB] 875 mg PO BID #20 tablet 08/19/18 Unknown Rx Chlorhexidine Mouthwash [Peridex] 15 ml MM BID #473 bottle 08/19/18 Unknown Rx Lidocaine Viscous 2% 5 ml MM Q3H PRN #120 udc 08/19/18 Unknown Rx dexAMETHasone [Decadron] 4 mg PO Q12H #5 tablet 08/19/18 Unknown Rx HYDROcodone/ACETAMINOPHEN 15 ml PO Q6H PRN #100 solution 08/30/18 Unknown Rx [Hydrocodon-Acetamin 7.5-325/15] Ondansetron [Zofran Odt] 4 mg PO Q8HR #6 tab.rapdis 08/30/18 Unknown Rx ED Physical Exam - General Limitations: No Limitations General appearance: alert, in no apparent distress - Head Head exam: Present: atraumatic, normocephalic - Eye Eye exam: Present: normal appearance - ENT ENT exam: Present: mucous membranes moist - Expanded ENT Exam Expanded Mouth exam: Present: tongue normal. Absent: drooling, trismus, muffled voice, tongue elevation Throat exam: Positive: tonsillar erythema, tonsillomegaly, tonsillar exudate. Negative: R peritonsillar mass, L peritonsillar mass - Neck Neck exam: Present: normal inspection, lymphadenopathy (anterior cervical) - Respiratory Respiratory exam: Present: normal lung sounds bilaterally. Absent: respiratory distress - Cardiovascular Cardiovascular Exam: Present: regular rate, normal rhythm. Absent: systolic murmur, diastolic murmur, rubs, gallop - GI/Abdominal GI/Abdominal exam: Present: soft, normal bowel sounds - Extremities Exam Extremities exam: Present: normal inspection - Back Exam Back exam: Present: normal inspection - Neurological Exam Neurological exam: Present: alert, oriented X3 - Psychiatric Psychiatric exam: Present: normal affect, normal mood - Skin Skin exam: Present: warm, dry, intact, normal color. Absent: rash ED Course Vital Signs 08/30/18 10:38 Temperature 100 F H Pulse Rate 100 H Respiratory 20 Rate Blood Pressure 118/69 [Right] O2 Sat by Pulse 100 Oximetry ED Medical Decision Making - Medical Decision Making Patient meets [facility] criteria for empiric treatment with antibiotics. Patient given Bicillin since she has a history of being noncompliant with full course of antibiotics at home by mouth. Patient also given a Decadron shot as well. Patient will be discharged home with medications for symptomatic relief. Critical care attestation.: If time is entered above; I have spent that time in minutes in the direct care of this critically ill patient, excluding procedure time. ED Disposition Clinical Impression: Acute pharyngitis Qualifiers: Pharyngitis/tonsillitis etiology: unspecified etiology Qualified Code(s): J02.9 - Acute pharyngitis, unspecified Disposition: - TO HOME OR SELFCARE Is pt being admited?: No Does the pt Need Aspirin: No Condition: Stable Instructions: Pharyngitis (ED) Referrals: CYNDI JOHN MD [Primary Care Provider] - 3-5 Days Time of Disposition: 12:14
== END 2018-08-30 12:28 | disposition home or self-care (01) ==
LOC: ED 10:19
DX: J02.9 Acute pharyngitis, unspecified (principal); R10.84 Generalized abdominal pain
CPT/HCPCS: 87116; 87430; 96372; 99283; J0561; J1100

== ENCOUNTER 2018-09-03 11:23 | Emergency (ER) | payer MEDICAID, OTHER ==
--- NOTE | 2018-09-03 11:35 | Event Note ---
ED Screening Note Date of service: 09/03/18 Time: 11:34 ED Screening Note: This is a 27 y.o. F. that presents to the ER with sore throat for 1 week. Patient was treated for acute pharyngitis in the ER on 08/30/2018. Patient states she only took antibiotics with minimal improvement of symptoms. This initial assessment/diagnostic orders/clinical plan/treatment(s) is/are subject to change based on patients health status, clinical progression and re- assessment by fellow clinical providers in the ED. Further treatment and workup at subsequent clinical providers discretion. Patient/guardian urged not to elope from the ED as their condition may be serious if not clinically assessed and man aged. Initial orders include: Reviewed strep culture and negative from 08/30/18 Given analgesics
[2018-09-03] MEDS ORDERED: TYLENOL PO ONE (11:39)
[2018-09-03] MEDS ORDERED: TYLENOL ONE (11:42)
[2018-09-03] MEDS ORDERED: NACL 0.9% 1000 ML 1,000 ML IV ONE (13:21)
--- NOTE | 2018-09-03 13:32 | Emergency Department Report ---
ED ENT HPI - General Chief complaint: Sore Throat Stated complaint: SORE THROAT Time Seen by Provider: 09/03/18 11:34 Source: patient Mode of arrival: Ambulatory Limitations: No Limitations - History of Present Illness Initial comments: This is a 27-year-old female nontoxic, well nourished in appearance, no acute signs of distress presents to the ED with c/o of sore throat. Patient stated that this has been going on for about a month and after antibitocs treatment resolves. Patient stated it started again yesterday with fever. Patient describes sore throat as swallowing razer blades. Patient denies any headache, stiff neck, nausea, vomiting, chest pain, shortness of breath, numbness or tingling. Patient denies any drooling or hoarseness. Patient denies any allergies or significant past medical history. MD complaint: sore throat -: days(s), Last night Location: throat Severity: mild Severity scale (0 -10): 8 Quality: aching Consistency: constant Improves with: none Worsens with: swallowing Associated Symptoms: pain with swallowing, sore throat. denies: fever, cough, gum swelling, toothache, tinnitus, hearing loss, discharge from ear, rhinorrhea - Related Data Previous Rx's Medication Instructions Recorded Last Taken Type Ondansetron [Zofran Odt] 4 mg PO Q4HR PRN #12 tab.rapdis 02/12/18 Unknown Rx Vit No.130/Iron/Folic 1 each PO DAILY #30 tablet 02/12/18 Unknown Rx [ Tablet] Fluconazole [Diflucan] 200 mg PO ONCE #1 tablet 05/18/18 Unknown Rx metroNIDAZOLE [Flagyl] 500 mg PO Q12HR #14 tab 05/18/18 Unknown Rx Amoxicillin [Amoxicillin TAB] 875 mg PO BID #20 tablet 08/19/18 Unknown Rx Chlorhexidine Mouthwash [Peridex] 15 ml MM BID #473 bottle 08/19/18 Unknown Rx Lidocaine Viscous 2% 5 ml MM Q3H PRN #120 udc 08/19/18 Unknown Rx dexAMETHasone [Decadron] 4 mg PO Q12H #5 tablet 08/19/18 Unknown Rx HYDROcodone/ACETAMINOPHEN 15 ml PO Q6H PRN #100 solution 08/30/18 Unknown Rx [Hydrocodon-Acetamin 7.5-325/15] Ondansetron [Zofran Odt] 4 mg PO Q8HR #6 tab.rapdis 08/30/18 Unknown Rx Amoxicillin/K Clav Tab [Augmentin 1 tab PO Q12HR #20 tab 09/03/18 Unknown Rx 875 mg] Ibuprofen [Motrin] 600 mg PO Q8H PRN #20 tablet 09/03/18 Unknown Rx Allergies Allergy/AdvReac Type Severity Reaction Status Date / Time No Known Allergies Allergy Verified 08/30/18 10:38 ED Dental HPI - General Chief complaint: Sore Throat Stated complaint: SORE THROAT Time Seen by Provider: 09/03/18 11:34 Source: patient Mode of arrival: Ambulatory Limitations: No Limitations - Related Data Previous Rx's Medication Instructions Recorded Last Taken Type Ondansetron [Zofran Odt] 4 mg PO Q4HR PRN #12 tab.rapdis 02/12/18 Unknown Rx Vit No.130/Iron/Folic 1 each PO DAILY #30 tablet 02/12/18 Unknown Rx [ Tablet] Fluconazole [Diflucan] 200 mg PO ONCE #1 tablet 05/18/18 Unknown Rx metroNIDAZOLE [Flagyl] 500 mg PO Q12HR #14 tab 05/18/18 Unknown Rx Amoxicillin [Amoxicillin TAB] 875 mg PO BID #20 tablet 08/19/18 Unknown Rx Chlorhexidine Mouthwash [Peridex] 15 ml MM BID #473 bottle 08/19/18 Unknown Rx Lidocaine Viscous 2% 5 ml MM Q3H PRN #120 udc 08/19/18 Unknown Rx dexAMETHasone [Decadron] 4 mg PO Q12H #5 tablet 08/19/18 Unknown Rx HYDROcodone/ACETAMINOPHEN 15 ml PO Q6H PRN #100 solution 08/30/18 Unknown Rx [Hydrocodon-Acetamin 7.5-325/15] Ondansetron [Zofran Odt] 4 mg PO Q8HR #6 tab.rapdis 08/30/18 Unknown Rx Amoxicillin/K Clav Tab [Augmentin 1 tab PO Q12HR #20 tab 09/03/18 Unknown Rx 875 mg] Ibuprofen [Motrin] 600 mg PO Q8H PRN #20 tablet 09/03/18 Unknown Rx Allergies Allergy/AdvReac Type Severity Reaction Status Date / Time No Known Allergies Allergy Verified 08/30/18 10:38 ED Review of Systems ROS: Stated complaint: SORE THROAT Other details as noted in HPI Constitutional: denies: chills, fever Eyes: denies: eye pain, eye discharge, vision change ENT: throat pain. denies: ear pain Respiratory: denies: cough, shortness of breath, wheezing Cardiovascular: denies: chest pain, palpitations Endocrine: no symptoms reported Gastrointestinal: denies: abdominal pain, nausea, diarrhea Genitourinary: denies: urgency, dysuria, discharge Musculoskeletal: denies: back pain, joint swelling, arthralgia Skin: denies: rash, lesions Neurological: denies: headache, weakness, paresthesias Psychiatric: denies: anxiety, depression Hematological/Lymphatic: denies: easy bleeding, easy bruising ED Past Medical Hx - Past Medical History Previous Medical History?: Yes Hx Hypertension: No Additional medical history: Hx of frequent sore throat pain - Surgical History Past Surgical History?: No - Social History Smoking Status: Never Smoker Substance Use Type: Alcohol - Medications Home Medications: Home Medications Medication Instructions Recorded Confirmed Last Taken Type Ondansetron [Zofran Odt] 4 mg PO Q4HR PRN #12 tab.rapdis 02/12/18 Unknown Rx Vit No.130/Iron/Folic 1 each PO DAILY #30 tablet 02/12/18 Unknown Rx [ Tablet] Fluconazole [Diflucan] 200 mg PO ONCE #1 tablet 05/18/18 Unknown Rx metroNIDAZOLE [Flagyl] 500 mg PO Q12HR #14 tab 05/18/18 Unknown Rx Amoxicillin [Amoxicillin TAB] 875 mg PO BID #20 tablet 08/19/18 Unknown Rx Chlorhexidine Mouthwash [Peridex] 15 ml MM BID #473 bottle 08/19/18 Unknown Rx Lidocaine Viscous 2% 5 ml MM Q3H PRN #120 udc 08/19/18 Unknown Rx dexAMETHasone [Decadron] 4 mg PO Q12H #5 tablet 08/19/18 Unknown Rx HYDROcodone/ACETAMINOPHEN 15 ml PO Q6H PRN #100 solution 08/30/18 Unknown Rx [Hydrocodon-Acetamin 7.5-325/15] Ondansetron [Zofran Odt] 4 mg PO Q8HR #6 tab.rapdis 08/30/18 Unknown Rx Amoxicillin/K Clav Tab [Augmentin 1 tab PO Q12HR #20 tab 09/03/18 Unknown Rx 875 mg] Ibuprofen [Motrin] 600 mg PO Q8H PRN #20 tablet 09/03/18 Unknown Rx ED Physical Exam - General Limitations: No Limitations General appearance: alert, in no apparent distress - Head Head exam: Present: atraumatic, normocephalic - Expanded ENT Exam Expanded Ear exam: Present: normal external inspection Mouth exam: Present: normal external inspection. Absent: drooling, trismus, muffled voice Teeth exam: Present: normal inspection Throat exam: Positive: tonsillar erythema, other (uvual midline. no swelling or abscess noted). Negative: tonsillomegaly, tonsillar exudate, R peritonsillar mass, L peritonsillar mass - Neck Neck exam: Present: normal inspection, full ROM. Absent: tenderness, mening ismus, lymphadenopathy - Extremities Exam Extremities exam: Present: normal inspection, full ROM - Back Exam Back exam: Present: normal inspection, full ROM - Neurological Exam Neurological exam: Present: alert, oriented X3, normal gait - Psychiatric Psychiatric exam: Present: normal affect, normal mood - Skin Skin exam: Present: warm, dry, intact, normal color. Absent: rash ED Course Vital Signs 09/03/18 09/03/18 11:28 11:40 Temperature 102.9 F H Pulse Rate 100 H Respiratory 18 18 Rate Blood Pressure 104/62 O2 Sat by Pulse 99 Oximetry - Reevaluation(s) Reevaluation #1: 09/03/18 13:34 Patient is speaking in full sentences with no signs of distress noted. ED Medical Decision Making - Medical Decision Making This is a 27-year-old female that presents with pharyngitis. Patient is stable was examined by me. There is no drooling. No tonsillar abscess noted. Uvula is midline. Patient received 1 L of normal saline and Tylenol. Vital signs are stable. Patient is not febrile and normal heart rate. Patient was instructed to Follow-up with a primary care doctor in 3-5 days or if symptoms worsen and continue return to emergency room as soon as possible. At time of discharge, the patient does not seem toxic or ill in appearance. No acute signs of distress noted. Patient agrees to discharge treatment plan of care. No further questions noted by the patient. Critical care attestation.: If time is entered above; I have spent that time in minutes in the direct care of this critically ill patient, excluding procedure time. ED Disposition Clinical Impression: Pharyngitis Disposition: DC-01 TO HOME OR SELFCARE Is pt being admited?: No Does the pt Need Aspirin: No Condition: Stable Instructions: Pharyngitis (ED) Additional Instructions: Follow-up with a primary care doctor in 3-5 days or if symptoms worsen and continue return to emergency room as soon as possible. Increased rest, hydration, and take Motrin/Tylenol as prescribed for fever episode. Prescriptions: Amoxicillin/K Clav Tab [Augmentin 875 mg] 1 tab PO Q12HR #20 tab Ibuprofen [Motrin] 600 mg PO Q8H PRN #20 tablet PRN Reason: Pain/Fever Referrals: [facility] MD TERESA [Primary Care Provider] - 3-5 Days PRIMARY CAREMD [Referring] - 3-5 Days ALLY BIGGS MD [Staff Physician] - 3-5 Days [facility] [Outside] - 3-5 Days CHE NORRIS MD [Staff Physician] - 3-5 Days Forms: Work/School Release Form(ED)
[2018-09-03 14:50] VITALS: BP 110/62
== END 2018-09-03 15:03 | disposition home or self-care (01) ==
LOC: ED 11:23
DX: J02.9 Acute pharyngitis, unspecified (principal)
CPT/HCPCS: 36415; 86308; 87116; 87430; 99283; J7030

== ENCOUNTER 2021-02-12 11:50 | Emergency (ER) | payer MEDICAID ==
[2021-02-12 12:09] VITALS: BP 111/58
--- NOTE | 2021-02-12 12:23 | Emergency Department Report ---
Blank Doc - Documentation Documentation: I did not participate in the care of this patient. This was an erroneous entry.
[2021-02-12] MEDS ORDERED: IBUPROFEN 800 MG TAB PO ONE (14:28)
[2021-02-12] MEDS ORDERED: ONDANSETRON 4 MG ODT TAB PO ONE (14:28)
--- NOTE | 2021-02-12 14:32 | Emergency Department Report ---
ED Fever HPI - General Chief Complaint: Fever Stated Complaint: FEVER Time Seen by Provider: 02/12/21 12:11 - History of Present Illness Initial Comments: Patient presents with a 1 day history of fever. She had a fever starting y esterday. This is associated with muscle aches and body aches. She has had cough and congestion. There has been no diarrhea, but she does report nausea with vomiting. She has no dysuria or rash. Patient denies sick contacts. She has had no known exposure to influenza or coronavirus. She has not been vaccinated against either. Patient states she just does not feel good. She has a headache. She has muscle aches and body aches. She has generalized malaise. She took liquid Tylenol without symptomatic improvement. She came here today for evaluation. ED Review of Systems ROS: Stated complaint: FEVER Other details as noted in HPI Comment: All other systems reviewed and negative Constitutional: see HPI, chills Eyes: denies: vision change ENT: throat pain Respiratory: cough (Dry) Cardiovascular: denies: chest pain Endocrine: denies: unexplained weight loss Gastrointestinal: as per HPI Genitourinary: denies: dysuria Musculoskeletal: arthralgia, myalgia Skin: denies: rash Neurological: as per HPI, headache Hematological/Lymphatic: denies: easy bruising ED Past Medical Hx - Past Medical History Hx Hypertension: No Hx Heart Attack/AMI: No Hx Congestive Heart Failure: No Hx Diabetes: No Hx Deep Vein Thrombosis: No Hx Liver Disease: No Hx Renal Disease: No Hx Sickle Cell Disease: No Hx Seizures: No Hx Asthma: No Hx COPD: No Additional medical history: Hx of frequent sore throat pain - Surgical History Hx Pacemaker: No Hx Internal Defibrillator: No - Family History Family history: no significant - Social History Smoking Status: Former Smoker - Medications Home Medications: Home Medications Medication Instructions Recorded Confirmed Last Taken Type HYDROcodone/APAP 5-325 [[place] 1 each PO Q6HR PRN #15 tablet 11/20/19 Unknown Rx 5/325] Ibuprofen [Motrin] 800 mg PO Q8HR PRN #30 tablet 11/20/19 Unknown Rx Benzonatate [Tessalon Perles] 100 mg PO Q8HR #20 capsule 02/12/21 Unknown Rx Ibuprofen [Motrin] 600 mg PO Q8H PRN #30 tablet 02/12/21 Unknown Rx Ondansetron [Zofran ODT TAB] 8 mg PO Q8HR PRN #20 tab.rapdis 02/12/21 Unknown Rx ED Physical Exam - General Limitations: No Limitations, Other (Pulse ox noted and normal) General appearance: alert, in no apparent distress, other (Nontoxic) - Head Head exam: Present: atraumatic, normocephalic - Eye Eye exam: Present: normal appearance, EOMI. Absent: scleral icterus - ENT ENT exam: Present: normal orophraynx, normal external ear exam - Neck Neck exam: Present: normal inspection. Absent: meningismus, lymphadenopathy - Respiratory Respiratory exam: Present: normal lung sounds bilaterally. Absent: respiratory distress - Cardiovascular Cardiovascular Exam: Present: normal rhythm, tachycardia - GI/Abdominal GI/Abdominal exam: Present: soft. Absent: tenderness - Extremities Exam Extremities exam: Present: normal capillary refill - Back Exam Back exam: Absent: CVA tenderness (R), CVA tenderness (L) - Neurological Exam Neurological exam: Present: alert, oriented X3, normal gait - Psychiatric Psychiatric exam: Present: normal affect, normal mood - Skin Skin exam: Present: warm, dry ED Course Vital Signs 02/12/21 12:06 Temperature 100.5 F H Pulse Rate 94 H Respiratory 20 Rate Blood Pressure 111/58 [Right] O2 Sat by Pulse 100 Oximetry - Reevaluation(s) Reevaluation #1: 02/12/21 14:31 Medications were ordered. Old records reviewed. ED Medical Decision Making - Medical Decision Making Patient presents with a viral constellation of symptoms. This could certainly be coronavirus. There is no clinical evidence of pneumonia. She has no meningeal signs. She does not appear to be toxic. We have treated her symptomatically. She does not require antiviral therapy at this time. There is no indication for antibiotic therapy. Critical Care Time: No Critical care attestation.: If time is entered above; I have spent that time in minutes in the direct care of this critically ill patient, excluding procedure time. ED Disposition Clinical Impression: Acute febrile illness, Viral URI Nausea & vomiting Qualifiers: Vomiting type: unspecified Qualified Code(s): R11.2 - Nausea with vomiting, unspecified Disposition: 01 HOME / SELF CARE / HOMELESS Is pt being admited?: No Condition: Stable Instructions: Fever, Adult, Cough, Adult, [id number], Viral Respiratory Infection, [id number], Nausea and Vomiting, Adult Additional Instructions: Push fluids. Alternate Tylenol and ibuprofen for fever. Return for problems. Follow-up with your regular doctor for recheck and further management. Consider outpatient coronavirus testing. Prescriptions: Ibuprofen [Motrin] 600 mg PO Q8H PRN #30 tablet PRN Reason: Pain Benzonatate [Tessalon Perles] 100 mg PO Q8HR #20 capsule Ondansetron [Zofran ODT TAB] 8 mg PO Q8HR PRN #20 tab.rapdis PRN Reason: Nausea Referrals: PRIMARY CAREMD [Primary Care Provider] - 3-5 Days ALLY MORA MD [Staff Physician] - 3-5 Days
== END 2021-02-12 16:13 | disposition home or self-care (01) ==
LOC: ED 11:50
DX: R50.9 Fever, unspecified (principal); J06.9 Acute upper respiratory infection, unspecified; R11.2 Nausea with vomiting, unspecified; Z87.891 Personal history of nicotine dependence
CPT/HCPCS: 87400; 99283; J3490; Q0162

== ENCOUNTER 2021-09-28 12:57 | Emergency (ER) | payer MEDICAID ==
[2021-09-28] MEDS ORDERED: SODIUM CHLORIDE 0.9% 1000 ML 1,000 ML IV ONE (14:00)
[2021-09-28] MEDS ORDERED: ONDANSETRON 4 MG/2 ML INJ IV ONE (14:00)
[2021-09-28 17:34] LABS: Bacteria,Urine 1+ /HPF (Negative); Mucus,Urine 3+ /HPF
[2021-09-28 17:48] LABS: Color,Urine Yellow (Yellow)
[2021-09-28 17:52] LABS: Bilirubin,Urine Negative (Negative); Blood,Urine Negative (Negative); Urobilinogen,Urine < 2.0 mg/dL (<2.0)
[2021-09-28] MEDS ORDERED: METOCLOPRAMIDE 10 MG TAB PO ONE (18:36)
[2021-09-28] MEDS ORDERED: diphenhydrAMINE 25 MG CAP PO ONE (18:36)
--- NOTE | 2021-09-28 18:53 | Emergency Department Report ---
ED HPI - General Chief complaint: Nausea/Vomiting/Diarrhea Stated complaint: 7WKS /VOMITING/FAINT FEELING Time Seen by Provider: 09/28/21 14:00 Source: patient Mode of arrival: Ambulatory Limitations: No Limitations - History of Present Illness Initial comments: 30-year-old black female with no past medical history presents to the emergency department for evaluation of nausea and vomiting. She states that she is G2, P1 at about 7 weeks gestation and for the last several days she has not been able to keep anything down. She states that she has been using ODT Zofran at home without any improvement. She denies abdominal pain, dysuria, fever, and vaginal discharge. MD Complaint: other (Nausea vomiting) -: Gradual, days(s) (3-4) Radiation: none Severity scale (0 -10): 0 Associated symptoms: nausea/vomiting. denies: vaginal bleeding, vaginal discharge, abdominal pain, dysuria, headache, vision changes, malaise, dysparuenia, shortness of breath, syncope, weakness :: Yes Number of weeks : 7 OB History - Current : no complications OB History - Previous Pregnancies: no complications - Related Data : 2 Para: 1 Previous Rx's Medication Instructions Recorded Last Taken Type HYDROcodone/APAP 5-325 [[place] 1 each PO Q6HR PRN #15 tablet 11/20/19 Unknown Rx 5/325] Ibuprofen [Motrin] 800 mg PO Q8HR PRN #30 tablet 11/20/19 Unknown Rx Benzonatate [Tessalon Perles] 100 mg PO Q8HR #20 capsule 02/12/21 Unknown Rx Ibuprofen [Motrin] 600 mg PO Q8H PRN #30 tablet 02/12/21 Unknown Rx Ondansetron [Zofran ODT TAB] 8 mg PO Q8HR PRN #20 tab.rapdis 02/12/21 Unknown Rx Metoclopramide [Reglan] 10 mg PO TID PRN #30 tab 09/28/21 Unknown Rx diphenhydrAMINE [Benadryl CAP] 25 mg PO Q8HR PRN #30 capsule 09/28/21 Unknown Rx Allergies Allergy/AdvReac Type Severity Reaction Status Date / Time No Known Allergies Allergy Verified 02/12/21 12:06 ED Review of Systems ROS: Stated complaint: 7WKS /VOMITING/FAINT FEELING Other details as noted in HPI Comment: All other systems reviewed and negative Constitutional: denies: chills, diaphoresis, fever, malaise, weakness Eyes: denies: eye discharge ENT: denies: congestion Respiratory: denies: shortness of breath Cardiovascular: denies: chest pain, palpitations Gastrointestinal: nausea, vomiting, diarrhea. denies: abdominal pain, constipation, hematemesis, melena, hematochezia Genitourinary: denies: urgency, dysuria, frequency, hematuria, discharge Musculoskeletal: denies: back pain Skin: denies: rash, lesions Neurological: denies: headache, weakness Psychiatric: denies: anxiety, depression ED Past Medical Hx - Past Medical History Hx Hypertension: No Hx Heart Attack/AMI: No Hx Congestive Heart Failure: No Hx Diabetes: No Hx Deep Vein Thrombosis: No Hx Liver Disease: No Hx Renal Disease: No Hx Sickle Cell Disease: No Hx Seizures: No Hx Asthma: No Hx COPD: No Additional medical history: Hx of frequent sore throat pain - Surgical History Hx Pacemaker: No Hx Internal Defibrillator: No - Social History Smoking Status: Former Smoker - Medications Home Medications: Home Medications Medication Instructions Recorded Confirmed Last Taken Type HYDROcodone/APAP 5-325 [[place] 1 each PO Q6HR PRN #15 tablet 11/20/19 Unknown Rx 5/325] Ibuprofen [Motrin] 800 mg PO Q8HR PRN #30 tablet 11/20/19 Unknown Rx Benzonatate [Tessalon Perles] 100 mg PO Q8HR #20 capsule 02/12/21 Unknown Rx Ibuprofen [Motrin] 600 mg PO Q8H PRN #30 tablet 02/12/21 Unknown Rx Ondansetron [Zofran ODT TAB] 8 mg PO Q8HR PRN #20 tab.rapdis 02/12/21 Unknown Rx Metoclopramide [Reglan] 10 mg PO TID PRN #30 tab 09/28/21 Unknown Rx diphenhydrAMINE [Benadryl CAP] 25 mg PO Q8HR PRN #30 capsule 09/28/21 Unknown Rx ED Physical Exam - General Limitations: No Limitations General appearance: alert, in no apparent distress - Head Head exam: Present: atraumatic, normocephalic - Eye Eye exam: Present: normal appearance. Absent: scleral icterus, conjunctival injection, periorbital swelling, periorbital tenderness - ENT ENT exam: Present: normal exam - Neck Neck exam: Present: normal inspection, full ROM. Absent: tenderness, lymphadenopathy - Respiratory Respiratory exam: Present: normal lung sounds bilaterally. Absent: respiratory distress, wheezes, rales, rhonchi, stridor, chest wall tenderness - Cardiovascular Cardiovascular Exam: Present: regular rate, normal heart sounds - GI/Abdominal GI/Abdominal exam: Present: soft, normal bowel sounds. Absent: distended, tenderness, guarding, rebound, rigid - Extremities Exam Extremities exam: Present: normal inspection, normal capillary refill. Absent: pedal edema, joint swelling, calf tenderness - Back Exam Back exam: Present: normal inspection. Absent: CVA tenderness (R), CVA tenderness (L), vertebral tenderness - Neurological Exam Neurological exam: Present: alert, oriented X3, CN II-XII intact, normal gait, reflexes normal. Absent: motor sensory deficit - Psychiatric Psychiatric exam: Present: normal affect, normal mood - Skin Skin exam: Present: warm, dry, intact, normal color ED Course Vital Signs 09/28/21 09/28/21 14:00 19:09 Temperature 98.9 F 97.8 F Pulse Rate 79 79 Respiratory 14 18 Rate Blood Pressure 95/73 112/66 [Right] O2 Sat by Pulse 99 97 Oximetry - Reevaluation(s) Reevaluation #1: 09/28/21 19:18 Nausea vomiting significantly improved after medication and IV fluids. Patient states that she feels much better. ED Medical Decision Making - Medical Decision Making 30-year-old black female with no past medical history presents to the emergency department for evaluation of nausea and vomiting. She states that she is G2, P1 at about 7 weeks gestation and for the last several days she has not been able to keep anything down. She states that she has been using ODT Zofran at home without any improvement. She denies abdominal pain, dysuria, fever, and vaginal discharge. Physical exam unremarkable. Patient denies any abdominal pain. Symptoms improved after medication. Patient be discharged home with Benadryl and Zofran to use as needed for nausea, and she is instructed to continue with Zofran at home as needed for nausea also. She is advised to follow-up with [facility] [employer] as planned and return to the emergency department as needed. She verbalizes understanding of and agreement with plan of care. Critical care attestation.: If time is entered above; I have spent that time in minutes in the direct care of this critically ill patient, excluding procedure time. ED Disposition Clinical Impression: Nausea and vomiting during prior to 22 weeks gestation Disposition: HOME / SELF CARE / HOMELESS Is pt being admited?: No Does the pt Need Aspirin: No Condition: Stable Instructions: Morning Sickness, [id number] Additional Instructions: Take medications as prescribed. Follow-up with [facility] [employer] for further evaluation and management. Return to the emergency department as needed. Prescriptions: diphenhydrAMINE [Benadryl CAP] 25 mg PO Q8HR PRN #30 capsule PRN Reason: Nausea And Vomiting Metoclopramide [Reglan] 10 mg PO TID PRN #30 tab PRN Reason: Nausea And Vomiting Referrals: MAGY VASQUEZ MD [Staff Physician] - 3-5 Days Forms: Work/School Release Form(ED) Time of Disposition: 18:53
[2021-09-28 19:10] VITALS: BP 112/66
== END 2021-09-28 19:09 | disposition home or self-care (01) ==
LOC: ED 12:57
DX: O21.8 Other vomiting complicating pregnancy (principal); Z3A.01 Less than 8 weeks gestation of pregnancy; Z87.891 Personal history of nicotine dependence
CPT/HCPCS: 81001; 96361; 96374; 99283; J2405; J7030